=== PATIENT | female | born 1990 | race Caucasian/White ===

== ENCOUNTER 2017-12-04 02:27 | Inpatient (IN) | payer BC ==
[~2017-12-04] VITALS: Ht 162.6 cm; Wt 53.1 kg
[2017-12-04] MEDS ORDERED: LANTUS SOLOSTAR 100 UNIT/ML (02:57)
[2017-12-04] MEDS ORDERED: HUMALOG 100 UNIT/ML (02:57)
[2017-12-04] MEDS ORDERED: METOCLOPRAMIDE HCL 10 MG/2 ML VIAL IV ONE ×3 (03:15→05:00)
[2017-12-04] MEDS ORDERED: IV NORMAL SALINE 1000 ML BAG IV ONE ×2 (03:15→04:00)
[2017-12-04] MEDS ORDERED: METOCLOPRAMIDE HCL 10 MG/2 ML VIAL ONE ×2 (03:36→04:32)
[2017-12-04 03:37] LABS: BASOPHILS % (AUTO) 0.3 % (0.0-2.0); EOSINOPHILS % (AUTO) 0.1 % (0.0-7.0); HEMATOCRIT 41.7 % (31.2-41.9); HEMOGLOBIN 13.8 g/dL (10.9-14.3); LYMPHOCYTES # (AUTO) 0.8 K/uL (20.0-40.0); LYMPHOCYTES % (AUTO) 6.3 % (20.5-51.5); MEAN CORPUSCULAR HEMOGLOBIN 29.4 uug (24.7-32.8); MEAN CORPUSCULAR HGB CONC 33 g/dL (32.3-35.6); MONOCYTES # (AUTO) 0.2 K/uL (2.0-10.0); MONOCYTES % (AUTO) 1.7 % (0.0-11.0); NEUTROPHILS # (AUTO) 11.2 K/uL (1.8-8.9); NEUTROPHILS % (AUTO) 91.6 % (38.5-71.5); PLATELET COUNT (AUTO) 322 K/uL (179-408); RED BLOOD CELL COUNT(AUTO) 4.69 MIL/uL (3.63-4.92); WHITE BLOOD COUNT (AUTO) 12.2 K/uL (3.8-11.8)
[2017-12-04 03:55] LABS: BILIRUBIN,DIRECT 0.2 mg/dL (0.0-0.2); BILIRUBIN,TOTAL 0.8 mg/dL (0.2-1.0); CREATININE 1.2 mg/dL (0.6-1.3); POTASSIUM 4.4 mmol/L (3.5-5.1); TOTAL PROTEIN, SERUM 8.2 g/dL (6.4-8.2)
--- NOTE | 2017-12-04 04:24 | NUR ---
PT AMBULATED TO BATHROON W/ STEADY GAIT.
[2017-12-04] MEDS ORDERED: MORPHINE SULFATE 4 MG/1 ML DISP.SYRIN ONE (04:59)
[2017-12-04] MEDS ORDERED: MORPHINE SULFATE 4 MG/1 ML DISP.SYRIN IV ONE (05:00)
[2017-12-04] MEDS ORDERED: PROCHLORPERAZINE EDISYLATE 10 MG/2 ML VIAL ONE (05:49)
[2017-12-04] MEDS ORDERED: diphenhydrAMINE 50 MG/1 ML VIAL ONE (05:49)
[2017-12-04] MEDS ORDERED: IV D5 1/2 NS 1000 ML 1,000 ML IV ONE (05:54)
[2017-12-04] MEDS ORDERED: diphenhydrAMINE 50 MG/1 ML VIAL IV ONE (06:00)
[2017-12-04] MEDS ORDERED: PROCHLORPERAZINE EDISYLATE 10 MG/2 ML VIAL IV ONE (06:00)
[2017-12-04] MEDS ORDERED: INSULIN REGULAR, HUMAN 1,000 UNITS/10 ML VIAL SUBCUT ONE (06:00)
[2017-12-04] MEDS ORDERED: INSULIN REGULAR, HUMAN 300 UNIT/3 ML VIAL ONE (06:11)
--- NOTE | 2017-12-04 06:30 | NUR ---
PATIENT IN BED ,ON AND OFF ASLEEP EASILY AROUSABLE WHEN ASKED PAIN IS MUCH BETTER AND LES NAUSEOUS . BREATHING EVEN AND UNLABORED NO SOB . IVF IN PROGRESS SITE CLEAN DRY AND INTACT .ADVISED TO CALL IF ASSISTANCE NEEDED .VERBALIZED UNDERSTANDING .
[2017-12-04] MEDS ORDERED: DEXTROSE 50% 50 ML DISP.SYRIN IV PRN ×2 (07:00→10:00)
[2017-12-04] MEDS ORDERED: INSULIN REGULAR, HUMAN 300 UNITS/3 ML VIAL SQ PRN (07:00)
[2017-12-04] MEDS ORDERED: MAGNESIUM HYDROXIDE 30 ML LIQUID UDC PO PRN (07:00)
[2017-12-04] MEDS ORDERED: ACETAMINOPHEN 325 MG TABLET PO PRN (07:00)
[2017-12-04] MEDS ORDERED: Z GUARD REMEDY PASTE 57 GM TUBE TOP PRN (07:00)
[2017-12-04] MEDS ORDERED: IV NS 1000 ML 1,000 ML IV SCH (07:00)
[2017-12-04] MEDS ORDERED: HYDROCODONE/APAP 5-325MG TABLET PO PRN (07:00)
[2017-12-04] MEDS ORDERED: INSULIN REGULAR, HUMAN 300 UNIT/3 ML VIAL SQ PRN (07:00)
--- NOTE | 2017-12-04 07:21 | NUR ---
REPORT GIVEN TO MAT DAY SHIFT RN .
[2017-12-04] MEDS ORDERED: BLOOD SUGAR DIAGNOSTIC 1 EACH STRIP VI SCH ×2 (07:30→12:00)
--- NOTE | 2017-12-04 07:51 | NUR ---
SBAR REPORT TO SHAUNA RN-2ND FLOOR RN. BELONGINGS LIST,ADMIT ORDER WRITTEN.
--- NOTE | 2017-12-04 08:04 | NUR ---
PT TRANSPORTED VIA [facility] TO [facility].
--- NOTE | 2017-12-04 08:17 | NUR ---
Received client via wheelchair. Breakfast brought up to her, client states she is thirsty. AO times 4, ambulatory and able to verbalize needs
--- NOTE | 2017-12-04 08:47 | NUR ---
aware of client's arrival to the Tele/ Med-surg unit
--- NOTE | 2017-12-04 09:56 | NUR ---
Third time placing a call to central supply for IV pole and unable to reach them.
[2017-12-04] MEDS: ONDANSETRON 4 MG/2 ML VIAL IV PRN (10:27)
[2017-12-04] MEDS: BLOOD SUGAR DIAGNOSTIC 1 EACH STRIP VI SCH ×4 (10:47→20:36)
[2017-12-04] MEDS: INSULIN REGULAR, HUMAN 300 UNIT/3 ML VIAL SQ PRN ×3 (10:55→20:38)
[2017-12-04 11:34] VITALS: BP_SYST 112; BP_SYST 139; BP_DIAS 52; BP_DIAS 76
[2017-12-04] MEDS ORDERED: diphenhydrAMINE 25 MG CAP PO PRN (11:45)
[2017-12-04] MEDS ORDERED: PERMETHRIN 5% CREAM 60 GM TUBE TP ONE (14:15)
[2017-12-04] MEDS: IV NS 1000 ML 1,000 ML IV SCH ×2 (15:01→22:37)
[2017-12-04] MEDS ORDERED: TRIAMCINOLONE ACET 0.025% OINT 15 GM TUBE TOP PRN (15:30)
[2017-12-04 15:48] VITALS: BP 98/54
--- NOTE | 2017-12-04 16:35 | NUR ---
Elimite applied as PPX, informed client to make sure she showers tomorrow, client understood information
--- NOTE | 2017-12-04 18:06 | NUR ---
Removed previous IV line in the AC, New IV line started in the left forearm gauge 22, intact, good blood return, flushed well. Client tolerated procedure well
--- NOTE | 2017-12-04 19:43 | NUR ---
End of shift notes: Client is alert, laying in bed with no apparent s/s of pain, distress, discomfort or SOB. Ambulatory to RR, able to communicated needs, bed at lowest position for safety and call light within reach for assistance. All nursing needs meet, client compliant with all medication and nursing care
[2017-12-04 20:00] VITALS: BP 98/55
[2017-12-04] MEDS ORDERED: LORAZEPAM 2 MG/1 ML VIAL IV PRN (23:15)
[2017-12-05] VITALS: BP 100/55
[2017-12-05] MEDS ORDERED: INSULIN REGULAR, HUMAN 300 UNITS/3 ML VIAL SQ PRN (00:15)
[2017-12-05] MEDS ORDERED: DEXTROSE 50% 50 ML DISP.SYRIN IV PRN (00:15)
[2017-12-05 04:00] VITALS: BP 118/66
[2017-12-05] MEDS: IV NS 1000 ML 1,000 ML IV SCH (06:17)
--- NOTE | 2017-12-05 06:45 | NUR ---
PATIENT AWAKE IN BED. ELIMITE CREAM WASHED OFF ORDERED. SLEPT WELL THROUGHOUT THE NIGHT. ON TELE SR. PATIENTS BLOOD SUGAR IS 307 AND PATIENT IS C/O NAUSEA, STATING THAT WHEN HER SUGAR IS HIGH SHE BECOMES VERY NAUSEOUS. PATIENT REQUESTING TO BE GIVEN INSULIN NOW. NOTIFIED UTILITY MECHANIC. PATIENT COVERED WITH 12 UNITS OF REGULAR INSULIN AND PATIENT GIVEN SANDWICH TO EAT. PATIENT ALSO GIVEN ZOFRAN 4MG IV PRN FOR NAUSEA PER RN. IVF INFUSING WELL. CALL LIGHT IN REACH. ALL NEEDS ATTENDED. WILL CONTINUE TO MONITOR.
[2017-12-05] MEDS: BLOOD SUGAR DIAGNOSTIC 1 EACH STRIP VI SCH ×3 (06:54→11:03)
[2017-12-05] MEDS: INSULIN REGULAR, HUMAN 300 UNIT/3 ML VIAL SQ PRN ×2 (07:00→12:26)
[2017-12-05] MEDS ORDERED: PANTOPRAZOLE SODIUM 40 MG TABLET.DR PO SCH (07:00)
[2017-12-05] MEDS: ONDANSETRON 4 MG/2 ML VIAL IV PRN (07:04)
[2017-12-05 07:27] LABS: BASOPHILS # (AUTO) 0.1 K/uL (0.0-8.0); BASOPHILS % (AUTO) 0.5 % (0.0-2.0); EOSINOPHILS % (AUTO) 0.4 % (0.0-7.0); HEMATOCRIT 40.7 % (31.2-41.9); HEMOGLOBIN 13.1 g/dL (10.9-14.3); LYMPHOCYTES # (AUTO) 2.5 K/uL (20.0-40.0); LYMPHOCYTES % (AUTO) 19.8 % (20.5-51.5); MEAN CORPUSCULAR HEMOGLOBIN 29.2 uug (24.7-32.8); MEAN CORPUSCULAR HGB CONC 32 g/dL (32.3-35.6); MEAN CORPUSCULAR VOLUME 90.3 fL (75.5-95.3); MONOCYTES # (AUTO) 0.5 K/uL (2.0-10.0); MONOCYTES % (AUTO) 4.1 % (0.0-11.0); NEUTROPHILS # (AUTO) 9.5 K/uL (1.8-8.9); NEUTROPHILS % (AUTO) 75.2 % (38.5-71.5); PLATELET COUNT (AUTO) 307 K/uL (179-408); WHITE BLOOD COUNT (AUTO) 12.6 K/uL (3.8-11.8)
[2017-12-05 07:35] LABS: *BILIRUBIN,URIN NEGATIVE (NEGATIVE); *BLOOD, URINE NEGATIVE (NEGATIVE); *CLARITY,URINE CLEAR (CLEAR); *COLOR,URINE YELLOW (YELLOW); *KETONES,URINE 4+ (NEGATIVE); *PROTEIN,URINE NEGATIVE (NEGATIVE); *UROBILINOGEN,URINE 0.2 E.U./dl (NORMAL); LEUKOCYTE ESTERASE ,URINE NEGATIVE (NEGATIVE); NITRITE, URINE NEGATIVE (NEGATIVE)
[2017-12-05 07:42] LABS: MAGNESIUM 1.5 mg/dL (1.8-2.4); PHOSPHOROUS 2.2 mg/dL (2.5-4.9); POTASSIUM 4.1 mmol/L (3.5-5.1)
--- NOTE | 2017-12-05 07:49 | NUR ---
Received client in bed awake, alert and oriented times 4. IV hydration running at this time, client stated headache of 5/10, [place] given as requested by client. No apparent s/s of SOB, or distress. Rechecked client BS with results of 269. Client stated to recheck again around 11am. Bed at lowest position for safety and call light for assistance.
[2017-12-05 07:54] LABS: UGLUCOSE 2+ (NEGATIVE)
[2017-12-05 07:55] LABS: BACTERIA,URINE FEW /HPF (NONE SEEN); RBC,URINE 0-3 /HPF (0-3); SQUAMOUS EPITHELIAL CELL,UR MODERATE /HPF (NONE SEEN)
[2017-12-05] MEDS ORDERED: NEUTRA PHOS PACKET PO ONE ×2 (11:15→11:45)
[2017-12-05] MEDS ORDERED: MAGNESIUM SULFATE/D5W 100 ML IV SCH (11:15)
[2017-12-05] MEDS ORDERED: MAGNESIUM OXIDE 400 MG TABLET PO ONE (11:45)
[2017-12-05 12:09] VITALS: BP 110/56
--- NOTE | 2017-12-05 14:32 | NUR ---
Client has been discharge with orders from MD. Client is in stable condition with no s/s of pain, distress, discomfort or SOB. Guided down to lobby with REPAIR DEPARTMENT MANAGER. All belongings signed for, educated the client on managing her insulin and Lantus. Client will be driving herself back home.
== END 2017-12-05 14:45 | disposition home or self-care (01) | DRG 639 ==
LOC: ER 02:36 → TELE 08:02 → MED 12-05 12:30
PROVIDERS: ADMIT Internal Medicine; ATTEND Internal Medicine
DX: E10.10 Type 1 diabetes mellitus with ketoacidosis without coma (principal); E83.39 Other disorders of phosphorus metabolism; E83.42 Hypomagnesemia; F12.90 Cannabis use, unspecified, uncomplicated; R21 Rash and other nonspecific skin eruption; Z79.4 Long term (current) use of insulin; Z82.49 Family history of ischemic heart disease and other diseases of the circulatory system; F41.9 Anxiety disorder, unspecified; R11.2 Nausea with vomiting, unspecified
CPT/HCPCS: 36415; 70030-TC; 71045; 83605; 83690; 83735; 84100; 84443; 84703; 85025; 87040; 87086; 93005; 93307; A4663; J0780; J1200; J1815; J2270; J2405; J2765; J3490; J7030